=== PATIENT | male | born 1985 ===

== ENCOUNTER 2019-06-28 16:56 | Emergency (ER) | payer OTHER ==
--- NOTE | 2019-06-28 16:58 | EDM.PDOC ---
ED HPI GENERAL MEDICAL PROBLEM - General Stated Complaint: RX REFILL Time Seen by Provider: 06/28/19 16:57 Source of Information: Reports: Patient - History of Present Illness INITIAL COMMENTS - FREE TEXT/NARRATIVE: HISTORY AND PHYSICAL: History of present illness: [Patient presents with dizziness, he has been out of his chronic medication of Cymbalta which he generally takes 90 mg daily [facility] that [facility] and is likely due within the next day or 2 however due to symptoms from the abrupt stop he presents for a refill No nausea vomiting chidizziness as above Otherwise no apparent distress whatsoever no fever chills sweats no chest pain shortness of breath headache or palpitation no bowel or urine symptoms re view of systems: As per history of present illness and below otherwise all systems reviewed and negative. Past medical history: As per history of present illness and as reviewed below otherwise noncontributory. Surgical history: As per history of present illness and as reviewed below otherwise noncontributory. Social history: No reported history of drug or alcohol abuse. Family history: As per history of present illness and as reviewed below otherwise noncontributory. Physical exam: HEENT: Atraumatic, normocephalic, pupils reactive, negative for conjunctival pallor or scleral icterus, mucous membranes moist, throat clear, neck supple, nontender, trachea midline. Lungs: Clear to auscultation, breath sounds equal bilaterally, chest nontender. Heart: S1S2, regular, negative for clicks, rubs, or JVD. Abdomen: Soft, nondistended, nontender. Negative for masses or hepatosplenomegaly. Negative for costovertebral tenderness. Pelvis: Stable nontender. Genitourinary: Deferred. Rectal: Deferred. Extremities: Atraumatic, negative for cords or calf pain. Neurovascular unremarkable. Neuro: Awake, alert, oriented. Cranial nerves II through XII unremarkable. Cerebellum unremarkable. Motor and sensory unremarkable throughout. Exam nonfocal. Diagnostics: [] Therapeutics: [Cymbalta 30 mg, 3 tabs by mouth daily #21 tablets ] Impression: [Anxiety ] Definitive disposition and diagnosis as appropriate pending reevaluation and review of above. - Related Data Allergies Allergy/AdvReac Type Severity Reaction Status Date / Time No Known Allergies Allergy Verified 06/28/19 17:24 Home Meds: Home Meds DULoxetine [Cymbalta] 30 mg PO TID 06/28/19 [History] Past Medical History Cardiovascular History: Reports: Hypertension - Past Surgical History Neurological Surgical History: Reports: Lumbar Spine ED ROS GENERAL - Review of Systems Review Of Systems: See Below ED EXAM, GENERAL - Physical Exam Exam: See Below Departure - Departure Time of Disposition: 17:27 Disposition: Home, Self-Care 01 Condition: Good Clinical Impression: Anxiety - Discharge Information Additional Instructions: The following information is given to patients seen in the emergency department who are being discharged to home. This information is to outline your options for follow-up care. We provide all patients seen in our emergency department with a follow-up referral. The need for follow-up, as well as the timing and circumstances, are variable depending upon the specifics of your emergency department visit. If you don't have a primary care physician on staff, we will provide you with a referral. We always advise you to contact your personal physician following an emergency department visit to inform them of the circumstance of the visit and for follow-up with them and/or the need for any referrals to a consulting specialist. The emergency department will also refer you to a specialist when appropriate. This referral assures that you have the opportunity for follow-up care with a specialist. All of these measure are taken in an effort to provide you with optimal care, which includes your follow-up. Under all circumstances we always encourage you to contact your private physician who remains a resource for coordinating your care. When calling for follow-up care, please make the office aware that this follow-up is from your recent emergency room visit. If for any reason you are refused follow-up, please contact the [facility] emergency department at and asked to speak to the emergency department charge nurse.
== END 2019-06-28 17:40 | disposition home or self-care (01) ==
LOC: MW.ED 16:56
DX: F41.9 Anxiety disorder, unspecified (principal); I10 Essential (primary) hypertension
CPT/HCPCS: 99281; 99283